=== PATIENT | male | born 1960 | race Caucasian/White ===

== ENCOUNTER → 2018-10-02 | Outpatient (CLI) | payer BC ==
--- NOTE | 2018-10-02 17:20 | CONS ---
CONSULTATION REASON FOR CONSULTATION: Consultation for sleep apnea. HISTORY OF PRESENT ILLNESS: 57-year-old male patient diagnosed having ISELA more than 10 years ago. He has been utilizing a CPAP unit that broke and he is coming in for reevaluation. His previous evaluation was done thru an outside sleep center that works out of [place]. Currently he is symptomatic, he is snoring and he gets very somnolent and sleepy when he is off the treatment. He is obese. He has gained significant amount of weight over the years and current BMI is 45.3. He goes to bed around 9 p.m., wakes up at 5:30 a.m. in the morning. He is averaging about 8 hours of sleep. He thinks that he is quite symptomatic and he is in need of his CPAP unit. Original sleep study for documentation is not available for me to use. PAST MEDICAL HISTORY: ISELA, psoriasis, obesity, ulcerative colitis and colon cancer. SURGICAL HISTORY: Colectomy and diverting colostomy. Repair of the ureter with reconstruction surgery. DRUG ALLERGIES: Not known. MEDICATIONS: None. SOCIAL HISTORY: Nonsmoker. No history of alcohol. No history of IV drugs. FAMILY HISTORY: Negative for sleep apnea. REVIEW OF SYSTEMS: 12-point review of system was done. Positive findings are mentioned above history of present illness. Symptomatic somnolent and sleepy especially off the treatment. He has been choking and gasping for air during sleep while off the treatment. No grinding of the teeth. No restlessness in lower extremities. No sleepwalking or sleep talking. No anxiety or panic attacks. No heartburn. PHYSICAL EXAMINATION: VITAL SIGNS: BP 144/89, pulse 86, respirations 16, temp 98.1, saturation 93% on room air. Weight 307. Height is 5 feet 9 inches, BMI 45.3, [place] score is 1 while on treatment. Neck size 20 is inches. GENERAL APPEARANCE: Calm and comfortable. Head is atraumatic, normocephalic. NECK: Supple. There is no JVD. No goiter or neck masses. Mallampati class IV. LUNGS: Clear to auscultation. HEART: Sounds are regular rate and rhythm. Normal S1, S2. No S3. No murmurs. ABDOMEN: Soft, nontender. No organomegaly. EXTREMITIES: No edema. No cyanosis or clubbing. NEUROLOGIC: Alert and oriented times three. No focal neurologic deficits. PSYCHIATRIC: There was no anxiety or depression. IMPRESSION: 1. Symptomatic obstructive sleep apnea, patient coming in for reevaluation. 2. Colon cancer treated with previous colectomy and diverting colostomy. 3. History of ulcerative colitis. 4. History of psoriasis. 5. Obesity, BMI of 45.3. PLAN: Proceed with a split night study. Split night should be able to be established diagnosis and its severity and following that, we will give the patient CPAP titration. The patient is in need of a new CPAP unit, and therefore mask interface which will be obviously a full-face mask. Encourage weight loss. Implement good sleep hygiene measures. We will continue to follow. MMODL / IJN: [id number] /
== END ==
LOC: SLEEP 16:13
PROVIDERS: ATTEND Internal Medicine Critical Care Medicine
DX: G47.33 Obstructive sleep apnea (adult) (pediatric) (principal); C18.9 Malignant neoplasm of colon, unspecified; E66.9 Obesity, unspecified; Z90.49 Acquired absence of other specified parts of digestive tract; Z93.3 Colostomy status; Z87.19 Personal history of other diseases of the digestive system; Z87.2 Personal history of diseases of the skin and subcutaneous tissue; Z68.42 Body mass index [BMI] 45.0-49.9, adult; Z99.89 Dependence on other enabling machines and devices
CPT/HCPCS: 99211

== ENCOUNTER → 2019-01-01 | Outpatient (CLI) | payer BC ==
--- NOTE | 2019-01-01 19:33 | PN ---
PROGRESS NOTE Rigo is 57 coming to see me for a compliancy check. The patient has an AHI of 76, and has undergone a successful CPAP titration. Currently he is on CPAP pressure of 10 cm of water. Over the past 30 days, the patient has been averaging around 8.8 hours of CPAP use per night and his AHI is down to 8.3. At times, he has noted that he is still snoring and his [place] score is currently down to 2. I checked again his CPAP titration and seen that the CPAP pressure of 10 was adequate however the patient tells me that he is still snoring and his AHI is at 8 which obviously made me think that the pressure itself was not adequate and needs to be modified. His weight has been up by around 7 pounds since this titration. No other complaints otherwise. He is still liking the machine and benefitting from machine and wants snoring to be completely eliminated. REVIEW OF SYSTEMS: Fourteen-point review of system was done. Positive findings are mentioned in history of present illness. PHYSICAL EXAMINATION: BP is 154/87, pulse 54, respirations 16, temperature 97.8. Weight is 314. Saturation 96% on room air. [place] score is a 2. Temperature 98. GENERAL APPEARANCE: Calm and comfortable. Head is atraumatic, normocephalic. NECK: Supple. No JVD. No goiter or neck masses. Mallampati class IV. LUNGS: Clear to auscultation. HEART: Sounds regular rate and rhythm. Normal S1, S2. No S3. No murmurs. ABDOMEN: Soft, nontender. No organomegaly. EXTREMITIES: No edema. No cyanosis or clubbing. Neurological: Alert and oriented times three. No focal neurological deficits. Psychiatrically negative for anxiety or depression. IMPRESSION: 1. Obstructive sleep apnea AHI of 76 currently undergoing CPAP therapy pressure of 10. 2. Snoring while on CPAP therapy. 3. Residual obstructive events while on CPAP therapy. The patient's AHI is at 8. 4. Hypersomnia improved [place] score is down to 2. 5. Obesity with a BMI of 46. PLAN: 1. Increase the CPAP pressure of 12 cm of water. 2. Monitored AHI values while on treatment. 3. Keep the Mirage FX wide full nose mask. 4. Contact me back if there is still snoring. Otherwise, the patient will see me back in a year's time. His treatment is successful for now. MMODL / IJN: [id number] /
== END | disposition home or self-care (01) ==
LOC: SLEEP 15:37
PROVIDERS: ATTEND Internal Medicine Critical Care Medicine
DX: G47.33 Obstructive sleep apnea (adult) (pediatric) (principal); E66.9 Obesity, unspecified; Z99.89 Dependence on other enabling machines and devices; Z68.42 Body mass index [BMI] 45.0-49.9, adult

== ENCOUNTER → 2019-11-25 | Outpatient (CLI) | payer BC ==
--- NOTE | 2019-11-25 15:57 | US ---
EXAMINATION TYPE: US thyroid st tissue head/neck DATE OF EXAM: 11/25/2019 COMPARISON: NONE CLINICAL HISTORY: R22.1 mass and lump. Palpable area bilateral lateral neck/supraclavicular x couple months TECHNIQUE/FINDINGS: Targeted grayscale sonographic imaging was performed of the patient's palpable ab normality of the bilateral supraclavicular neck masses. Right lateral neck/supraclavicular palpable area: no abnormality seen at this time Left lateral neck/supraclavicular palpable area: no abnormality seen at this time IMPRESSION: No sonographic correlate to the patient's bilateral palpable supraclavicular abnormaliti es.
== END | disposition home or self-care (01) ==
LOC: RADUSWWP 15:22
PROVIDERS: ATTEND Family Medicine
DX: R22.1 Localized swelling, mass and lump, neck (principal)
CPT/HCPCS: 76536